=== PATIENT | male | born 1985 | race Caucasian/White ===

== ENCOUNTER 2019-08-16 18:00 | Emergency (ER) | payer MEDICAID, SELFPAY ==
--- NOTE | ~2019-08-16 | XR_ITS ---
EXAMINATION: XR lumbar spine 2-3V DATE: 08/16/2019 19:04 INDICATION: Low back pain TECHNIQUE: Anteroposterior and lateral views of the lumbar spine, and cone-down lateral view of the l umbosacral junction were obtained. COMPARISON: None. FINDINGS: The vertebral body heights, alignment, and intervertebral disc spaces are normal. There is no fracture, dislocation, or subluxation of the lumbar spine. There is an offset of the anterior cor soheila near the sacrococcygeal junction. Bone alignment is otherwise normal. The pelvic soft tissues are normal. IMPRESSION: 1. No lumbar spine fracture. 2. Possible minimally displaced fracture at the sacrococcygeal junction although this appearance is o ften seen as a normal variant as well. Reviewed, dictated and finalized at location A. IMPRESSION: 1. No lumbar spine fracture. 2. Possible minimally displaced fracture at the sacrococcygeal junction althoug h this appearance is often seen as a normal variant as well.
--- NOTE | ~2019-08-16 | XR_ITS ---
EXAMINATION: XR sacrum coccyx min 2V INDICATION: Sacrococcygeal pain TECHNIQUE: Three views of the sacrum and coccyx are obtained. COMPARISON: None available FINDINGS: There is an offset of the anterior cortex near the sacrococcygeal junction. Bone alignment is otherwise normal. The pelvic soft tissues are normal. IMPRESSION: 1. Possible minimally displaced fracture at the sacrococcygeal junction although this appearance is o ften seen as a normal variant as well. Reviewed, dictated and finalized at location A. IMPRESSION: 1. Possible minimally displaced fracture at the sacrococcygeal junction althoug h this appearance is often seen as a normal variant as well.
[2019-08-16 18:17] VITALS: BP 131/80; PULSE 95; RESP 14; TEMP 37.6; O2SAT 99
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
[2019-08-16] MEDS: KETOROLAC (*BKC) 60 MG/2 ML VIAL IM (18:45)
[2019-08-16 20:18] VITALS: BP 137/74; PULSE 76; RESP 18; TEMP 36.7; O2SAT 97
== END 2019-08-16 20:19 | disposition home or self-care (01) ==
PROVIDERS: Emergency Provider Nurse Practitioner Family
DX: M48.48XA Fatigue fracture of vertebra, sacral and sacrococcygeal region, initial encounter for fracture (principal)
CPT/HCPCS: 72100; 72220; 96372; 99284; J1885

== ENCOUNTER 2019-08-17 17:44 | Emergency (ER) | payer MEDICAID, SELFPAY ==
--- NOTE | ~2019-08-17 | CT_ITS ---
EXAMINATION: CT pelvis wo con DATE: 08/17/2019 18:53 INDICATION: Pelvis/coccygeal pain after fall TECHNIQUE: Computed tomography (CT) of the pelvis was performed without intravenous contrast. The dos e-length product (DLP) was 553.75 mGy-cm. Automated exposure control and iterative reconstruction anastasiya hnique were employed. COMPARISON: Radiographs from yesterday FINDINGS: No fracture is identified. There is persistent and unchanged anterior angulation of the alberto cyx between the first and second segments. The first coccygeal segment is approximately 1.5 mm investment accounting clerk ior to the second and third segments. Subtle soft tissue swelling surrounds the sacrococcygeal juncti on. There is mild spondylosis at L5-S1. An appendicolith is noted in the tip of the otherwise normal appendix. There are no pathologically enlarged pelvic lymph nodes. IMPRESSION: 1. Persistent anterior angulation of the coccyx with subtle offset between the first and second coccy geal segments. Findings could be posttraumatic or normal variant. Reviewed, dictated and finalized at location A. IMPRESSION: 1. Persistent anterior angulation of the coccyx with subtle offset between the first and second coccygeal segments. Findings could be posttraumatic or normal variant.
[2019-08-17 17:48] VITALS: BP 124/101; PULSE 88; RESP 20; TEMP 37.3; O2SAT 100
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
[2019-08-17] MEDS: DIAZEPAM 5 MG TABLET PO (18:49)
== END 2019-08-17 19:55 | disposition home or self-care (01) ==
PROVIDERS: Emergency Provider Emergency Medicine
DX: S39.92XA Unspecified injury of lower back, initial encounter (principal); X58.XXXA Exposure to other specified factors, initial encounter; R93.7 Abnormal findings on diagnostic imaging of other parts of musculoskeletal system
CPT/HCPCS: 72192; 99284; A9270

== ENCOUNTER 2020-06-18 12:07 | Outpatient (CLI) | payer OTHER, SELFPAY ==
--- NOTE | ~2020-06-18 | XR_ITS ---
EXAMINATION: XR clavicle RT DATE: 06/18/2020 12:36 INDICATION: Right shoulder pain. TECHNIQUE: 2 views of right clavicle were obtained. COMPARISON: None. FINDINGS: Bone alignment is normal. No fracture. There is mild acromioclavicular joint osteoarthritis . IMPRESSION: 1. Mild acromioclavicular joint osteoarthritis. Reviewed, dictated and finalized at location A.
--- NOTE | ~2020-06-18 | XR_ITS ---
EXAMINATION: XR shoulder LT min 2V DATE: 06/18/2020 12:37 INDICATION: Left shoulder pain. TECHNIQUE: 4 views of left shoulder were obtained. COMPARISON: None. FINDINGS: Bone alignment is normal. No fracture. Joint spaces are well maintained. IMPRESSION: 1. Normal left shoulder. Reviewed, dictated and finalized at location A. IMPRESSION: 1. Normal left shoulder.
--- NOTE | ~2020-06-18 | XR_ITS ---
EXAMINATION: XR shoulder RT min 2V DATE: 06/18/2020 12:38 INDICATION: Right shoulder pain. TECHNIQUE: 4 views of right shoulder were obtained. COMPARISON: None. FINDINGS: Bone alignment is normal. No fracture. Joint spaces are well maintained. IMPRESSION: 1. Normal right shoulder. Reviewed, dictated and finalized at location A. IMPRESSION: 1. Normal right shoulder.
== END 2020-06-18 12:08 | disposition home or self-care (01) ==
LOC: ANHIMG 12:11
PROVIDERS: PCP Family Medicine; Visit Provider Family Medicine
DX: M89.8X1 Other specified disorders of bone, shoulder (principal); V86.56XA Driver of dirt bike or motor/cross bike injured in nontraffic accident, initial encounter; M19.011 Primary osteoarthritis, right shoulder; M25.512 Pain in left shoulder
CPT/HCPCS: 73000; 73030